=== PATIENT | female | born 1960 | race African-American/Black ===

== ENCOUNTER 2020-10-29 15:23 | Outpatient (CLI) | payer BC, SELFPAY ==
--- NOTE | ~2020-10-29 | MR_ITS ---
EXAMINATION: MR foot RT wo/w con DATE: 10/29/2020 17:32 INDICATION: Lipoma at the right foot. TECHNIQUE: Magnetic resonance imaging (MRI) of the right fore/mid foot was performed without intraven ous contrast. Sequences included axial, sagittal and coronal T1-weighted FSE and T2-weighted FS FSE, axial T1-weighted FS FSE and postcontrast axial and coronal T1-weighted FS FSE. A marker has been deni randall over the region of concern. COMPARISON: None FINDINGS: There is focal thickening of the subcutaneous fat underlying the marker indicating the region of conc suzi dorsal to the diaphysis of the second metatarsal. No discrete encapsulated lipoma appreciated. No other abnormal masses, fluid collections or abnormally enhancing lesions identified. Bone alignment is normal. Mild osteoarthritis at the first metatarsophalangeal joint with small focus of subarticula r edema at the central aspect of the head of the first metatarsal. Otherwise normal marrow signal thr oughout with no fracture, reactive edema or other pathologic marrow replacing process. Lisfranc ligam ent complex and the collateral ligament complex at the metatarsophalangeal and visualized interphalan geal joints are normal as are the visualized portions of the flexor and extensor tendons. Intrinsic m usculature of the foot is unremarkable. IMPRESSION: 1. The lesion of concern corresponds to focal lipomatosis without a clearly defined encapsulated lipo ma. Reviewed, dictated and finalized at location A. IMPRESSION: 1. The lesion of concern corresponds to focal lipomatosis without a clearly def ined encapsulated lipoma.
[2020-10-29 16:06] LABS: Estimated Glomerular Filt Rate > 60
== END 2020-10-29 15:24 | disposition home or self-care (01) ==
PROVIDERS: PCP Internal Medicine
DX: D17.23 Benign lipomatous neoplasm of skin and subcutaneous tissue of right leg (principal)
CPT/HCPCS: 73720; A9577